=== PATIENT | male | born 1960 | race Caucasian/White ===

== ENCOUNTER 2018-07-08 11:03 | Observation (INO) | payer OTHER ==
[2018-07-08] MEDS ORDERED: NS 1,000 ML IV ONE (11:04)
[2018-07-08 11:47] LABS: PLATELET COUNT 286 10^3/uL (150-400)
[2018-07-08 11:55] LABS: INR 0.91 (0.83-1.16); PROTIME(PATIENT) 11.9 SEC (12.0-15.0)
--- NOTE | 2018-07-08 12:04 | PDANEPAE ---
ANE History of Present Illness Ablation of atrial flutter. ANE Past Medical History - Cardiovascular History Hx Hypertension: No Hx Arrhythmias: Yes Hx Chest Pain: No Hx Coronary Artery / Peripheral Vascular Disease: No Hx CHF / Valvular Disease: No Hx Palpitations: Yes - Pulmonary History Hx COPD: No Hx Asthma/Reactive Airway Disease: No Hx Recent Upper Respiratory Infection: No Hx Oxygen in Use at Home: No Hx Sleep Apnea: No - Neurologic History Hx Cerebrovascular Accident: No Hx Seizures: No Hx Dementia: No - Endocrine History Hx Diabetes: No Hypothyroid: No Hyperthyroid: No Obesity: no - Renal History Hx Renal Disorders: No - Liver History Hx Hepatic Disorders: No - Neurological & Psychiatric Hx Hx Neurological and Psychiatric Disorders: No - GI History GERD: no Hx Gastrointestinal Disorders: No - Chronic Pain History Chronic Pain: No - Surgical History Prior Surgeries: tonsillectomy,lumbar laminectomy, I&D of back, B TKA, R partial shoulder arthroplasty ANE Review of Systems Review of Systems: - Exercise capacity Exercise capacity: >=4 METS ANE Patient History - Allergies Allergies/Adverse Reactions: No Known Allergies Allergy (Verified 07/03/18 10:18) - Home Medications Home Medications: Apixaban [Eliquis] 5 mg PO BID 07/03/18 [Last Taken 07/05/18 07:00] Diltiazem HCl [Cartia Xt] 120 mg PO DAILY 07/03/18 [Last Taken 07/05/18 08:00] Diltiazem [Cardizem Immediate Release] 30 mg PO DAILY PRN 07/03/18 [Last Taken 07/01/18 19:00] Ibuprofen [Motrin (*)] 200 mg PO DAILY PRN 07/03/18 [Last Taken Unknown] - Anes Hx Anes Hx: no prior problems - Smoking Hx Smoking Status: Former smoker - Alcohol Use Alcohol Use: None - Family Anes Hx Family Anes Hx: none ANE Labs/Vital Signs - Labs Result Diagrams: 07/08/18 11:20 07/08/18 11:20 - Vital Signs Height: 175 cm Weight: 81.6 kg ANE Physical Exam - Airway Neck exam: FROM Mallampati Score: Class 1 - Pulmonary Pulmonary: clear to auscultation - Cardiovascular Cardiovascular: regular rate and rhythym - ASA Status ASA Status: II ANE Anesthesia Plan Anesthesia Plan: general endotracheal anesthesia
[2018-07-08] MEDS ORDERED: MIDAZOLAM 2 MG/2 ML VIAL IVP ONE (12:08)
[2018-07-08] MEDS ORDERED: ROCURONIUM 50 MG/5 ML VIAL ONE (12:25)
[2018-07-08] MEDS ORDERED: PROPOFOL 200 MG/20 ML VIAL ONE (12:25)
[2018-07-08] MEDS ORDERED: DEXAMETHASONE 4 MG/ML VIAL ONE (12:25)
--- NOTE | 2018-07-08 12:28 | PDANEPAE ---
ANE Past Medical History - Pulmonary History Hx Oxygen in Use at Home: No Hx Sleep Apnea: No - Endocrine History Hx Diabetes: No ANE Review of Systems Review of Systems: ANE Patient History - Allergies Allergies/Adverse Reactions: No Known Allergies Allergy (Verified 07/03/18 10:18) - Home Medications Home Medications: Apixaban [Eliquis] 5 mg PO BID 07/03/18 [Last Taken 07/05/18 07:00] Diltiazem HCl [Cartia Xt] 120 mg PO DAILY 07/03/18 [Last Taken 07/05/18 08:00] Diltiazem [Cardizem Immediate Release] 30 mg PO DAILY PRN 07/03/18 [Last Taken 07/01/18 19:00] Ibuprofen [Motrin (*)] 200 mg PO DAILY PRN 07/03/18 [Last Taken Unknown] ANE Labs/Vital Signs - Labs Result Diagrams: 07/08/18 11:20 07/08/18 11:20 - Vital Signs Height: 175 cm Weight: 81.6 kg
[2018-07-08] MEDS ORDERED: SEVOFLURANE 250 ML BOTTLE IH ONE (12:30)
[2018-07-08] MEDS ORDERED: LIDOCAINE 1% 300 MG/30 ML SDV ONE (12:40)
[2018-07-08] MEDS ORDERED: HEPARIN 10,000 UNIT/10 ML MDV (1,000 UNIT/ML) ONE ×2 (12:41→13:34)
[2018-07-08] MEDS ORDERED: BUPIVACAINE 0.5% 30 ML SDV ONE (12:41)
--- NOTE | 2018-07-08 12:49 | PDGENHP ---
History & Physical Chief Complaint: at/afl Relevant Physical Exam: s1s2 rrr cta ao3 Cardiorespiratory Assessment: ablation for afib, avnrt, afl and other at in 2013 , symptom free since then until 6 mo ago. Plan to induce AT and map/ablate. If no AT present, will check AFL line and PVI and re ablate as necessary. Known PFO
[2018-07-08] MEDS ORDERED: ISOPROTERENOL HCL/D5W 0.2 MG/50 ML BAG IV ONE (12:52)
[2018-07-08] MEDS ORDERED: PHENYLEPHRINE HCL 100 MCG/ML SYR ONE (13:22)
[2018-07-08] MEDS ORDERED: HEPARIN/DEXTROSE 25,000 UNIT/500 ML BAG ONE (13:34)
[2018-07-08] MEDS ORDERED: ePHEDrine SULFATE 25 MG/5 ML SYR ONE ×2 (14:06→14:24)
[2018-07-08] MEDS ORDERED: ONDANSETRON 4 MG/2 ML VIAL ONE (14:27)
[2018-07-08] MEDS ORDERED: NALOXONE HCL 0.4 MG/ML INJ IVP PRN (14:44)
[2018-07-08] MEDS ORDERED: SUGAMMADEX SODIUM 200 MG/2 ML VIAL IVP ONE (14:45)
[2018-07-08] MEDS ORDERED: fentaNYL 100 MCG/2 ML INJ IVP PRN (14:54)
[2018-07-08] MEDS ORDERED: MIDAZOLAM 2 MG/2 ML VIAL ONE (15:01)
[2018-07-08] MEDS ORDERED: IBUPROFEN 200 MG TAB PO PRN (15:09)
--- NOTE | 2018-07-08 15:09 | POSTANESTH ---
Post Anesthetic Evaluation Cardiovascular Status: Normal, Stable Respiratory Status: Normal, Stable Level of Consciousness/Mental Status: Can Participate in Eval Pain Control: Adequate, Prn Tx Ordered Nausea/Vomiting Control: Adequate, Prn Tx Ordered Complications Possibly Related to Anesthesia: None Noted
--- NOTE | 2018-07-08 15:14 | EPPROC ---
Electrophysiology Procedure Note: ELECTROPHYSIOLOGIC STUDY AND CATHETER MEDIATED ABLATION FOR SUBEUSTACHIAN ISTHMUS DEPENDENT COUNTERCLOCKWISE ATRIAL FLUTTER: INDICATION: Recurrent atrial flutter/tachycardia Prior ablation at our institution in 2012 (RF AFIB, left AT) and 2013 (AVNRT, right AT, AFL) PROCEDURES PERFORMED: 48222-72 EP evaluation with RA/RV/LA pace/record, with arrhythmia induction 87630-94 EP evaluation with RA/RV pace record, insert/reposition catheter, with arrhythmia induction 79914 SVT ablation 58498 3D mapping Fluoroscopy Catheters & Anesthesia: The patient arrived in the Electrophysiology Laboratory in the fasting state. The right clavicular region, right groin, and left groin area were prepped and draped in the usual sterile manner. Anesthesiologist Dr. Perla Zamora administered general anesthesia. Appropriate non-invasive blood pressure, pulse oximetry and end-tidal CO2 monitoring was established. All catheters were placed percutaneously using the modified Seldinger technique , and advanced into position under fluoroscopic guidance. One #7 Kuwaiti deflectable octapolar electrode catheter was advanced to the His-bundle position via the left femoral vein and then into the coronary sinus. One # 7 [place] Halo catheter was inserted through the left femoral vein and was placed at the tricuspid annulus. Heparin was administered to keep ACT > 250 seconds. Programmed stimulation was performed from the right atrium, coronary sinus ( left atrium) and right ventricle. On arrival to the Electrophysiology Laboratory the patient was in sinus rhythm. Atrial flutter, CL 300 ms ms was easily induced by CS pacing or by single PAC. Entrainment mapping from lateral TA, septal TA, proximal CS and distal CS confirmed cavotricuspid isthmus dependent atrial flutter. In preparation for ablation of typical atrial flutter, a high-resolution 3D (3 dimensional) Carto electroanatomical map of the sub-Eustachian isthmus and right atrium was obtained during pacing of the posterolateral coronary sinus. For ablation of typical atrial flutter, one Mobi sheath was placed in the right atrium. A #8 Kuwaiti deflectable quadrapolar electrode catheter (2mm-5mm-2mm spacing) with 3.5 mm STSF irrigated tip electrode and location sensor for the [facility] mapping system was inserted in the long sheath and advanced to the right atrium. Mapping showed a gap in the CT isthmus line with fragmented potentials at the tricuspid annulus. First RF application at this site achieved bidirectional block. Further radiofrequency applications were applied between the tricuspid annulus at 0630 oclock as seen in the TOGOLESE view and the inferior vena cava. Post ablation, a high-resolution electroanatomical map of the sub-Eustachian isthmus was obtained during pacing of the posterolateral coronary sinus. This confirmed conduction block across the sub-Eustachian isthmus. Bidirectional block was also confirmed by pacing. Post ablation, programmed stimulation with isoproterenol on board induced non sustained (3-5 seconds) right atrial tachycardia, CL 460-480 ms. This was not targeted for ablation. The catheters were removed. Sheaths were removed in EP Lab post subQ purse string sutures. The patient was transferred to the cardiovascular holding area in stable condition. Vascular access sheaths were removed in the holding area. There were no apparent complications. CONCLUSIONS: 1. Cavotricuspid isthmus dependent counterclockwise atrial flutter. Conduction along the cavotricuspid isthmus noted near the tricuspid annulus. 2. Successful catheter mediated ablation of cavotricuspid isthmus achieving bi -directional conduction block across cavotricuspid isthmus. 3. Non sustained right atrial tachycardia, not targeted for ablation. 4. No apparent complications. Patient Problems: Problems Problem Status Onset Atrial fibrillation and flutter Active Bacteremia due to Staphylococcus Acute
[2018-07-09 04:34] LABS: PLATELET COUNT 269 10^3/uL (150-400)
[2018-07-09] MEDS ORDERED: PNEUMOCOCCAL 0.5ML VACCINE VIAL (PNEUMOVAX 23) IM ONE (07:35)
[2018-07-09] MEDS ORDERED: ASPIRIN 81 MG CHEWABLE TAB PO SCH (09:00)
--- NOTE | 2018-07-09 10:19 | ASMTLACE ---
LACE Length of stay for Answers: Less than 1 day current admission Acuity / Level of Answers: No Care: Did the patient have an inpatient admission? Comorbidities - select Answers: Other Notes: AFib all that apply # of Emergency department Answers: 0 visits in the last 6 months Score: 1 Date Signed: 07/09/2018 10:18 AM Electronically Signed By:Patria Cooper RN
--- NOTE | 2018-07-09 10:25 | ASDISCHSUM ---
Discharge Information Plan Status:Home with No Needs Medically Cleared to Leave:07/09/2018 Discharge Date:07/09/2018 CM D/C Disposition:Home, Routine, Self-Care ADT D/C Disposition:Home, Routine, Self-Care Projected Discharge Date:07/09/2018 Transportation at D/C: Discharge Delay Reason: Follow-Up Date:07/09/2018 Discharge Slot: Final Diagnosis: Placement Information Patient Contact Information Contact Name:FADIA Relationship: Address:[address] [place] [address] Work Phone: City:[place] Alternate Phone: State/Zip Code:[place] [address] Email: Financial Information Financial Class:BCOP Primary Plan Desc:[employer] Primary Plan Number:[id number] Secondary Plan Desc: Secondary Plan Number: Assessment Information LACE LACE Length of stay for Answers: Less than 1 day current admission Acuity / Level of Answers: No Care: Did the patient have an inpatient admission? Comorbidities - select Answers: Other Notes: AFib all that apply # of Emergency department Answers: 0 visits in the last 6 months Score: 1 Date Signed: 07/09/2018 10:18 AM Electronically Signed By:Patria Cooper RN Intervention Information
[2018-07-09 10:39] VITALS: BP 113/63
--- NOTE | 2018-07-09 13:14 | CPEKG ---
Test Reason : OPEN Blood Pressure : / mmHG Vent. Rate : 076 BPM Atrial Rate : 083 BPM P-R Int : 177 ms QRS Dur : 163 ms QT Int : 439 ms P-R-T Axes : 063 -58 044 degrees QTc Int : 494 ms Sinus rhythm RBBB and LAFB Confirmed by Richard Chan ([id number]) on 07/09/2018 1:14:49 PM Referred By: Richard Chan Confirmed By:Richard Chan
--- NOTE | 2018-07-09 13:17 | CPEKG ---
Test Reason : OPEN Blood Pressure : / mmHG Vent. Rate : 082 BPM Atrial Rate : 079 BPM P-R Int : 177 ms QRS Dur : 160 ms QT Int : 434 ms P-R-T Axes : 048 -32 028 degrees QTc Int : 507 ms Sinus rhythm Right bundle branch block Confirmed by Richard Chan ([id number]) on 07/09/2018 1:17:14 PM Referred By: Richard Chan Confirmed By:Richard Chan
--- NOTE | 2018-07-09 13:19 | CPEKG ---
Test Reason : OPEN Blood Pressure : / mmHG Vent. Rate : 072 BPM Atrial Rate : 072 BPM P-R Int : 188 ms QRS Dur : 173 ms QT Int : 441 ms P-R-T Axes : 053 -11 027 degrees QTc Int : 483 ms Sinus rhythm Right bundle branch block Confirmed by Richard Chan ([id number]) on 07/09/2018 1:19:10 PM Referred By: Richard Chan Confirmed By:Richard Chan
--- NOTE | 2018-07-09 15:32 | ECHO ---
[email or web address] [address] [address] Main: [phone] Echocardiography Examination Transthoracic Name: BANDAR MCCAIN MR#: [id number] Study Date: 07/09/2018 Study Time: 08:59 AM Date of : 1960 Age: 58 year(s) Height: 172.7 cm (68 in.) Weight: 81.19 kg (179 lb.) BSA: 1.95 m2 Gender: Male Examination: Echo Contrast: Image Quality: Adequate Rhythm: Heart Rate: BP: 84 mmHg/59 mmHg Indication: F/U Post EP Study Procedure Staff Referring Physician: Implementation Project Manager: Emilie David [facility] Reading Physician: Destiney Charles MD Requesting Provider: Ordering Physician: Richard Chan MD Indication: F/U Post EP Study Measurements Chambers AV/MV Label Value Normal Value Label Value Normal Value LVOTd 2.1 cm (1.9cm - 2.1cm) AV PGmax 7 mmHg LVOT VTI 18.9 cm (18cm - 22cm) AV PGmean 4 mmHg LVDd, 2D 4.4 cm (4.2cm - 5.9cm) AV Vmax 1.36 m/s LVDs, 2D 3 cm (2.1cm - 4cm) JAVID (VTI) 2.9 cm2 IVSd, 2D 1.1 cm (0.6cm - 1.1cm) MV E Vmax 0.51 m/s LVPWd, 2D 1 cm (0.6cm - 1cm) MV A Vmax 0.6 m/s LVEF, BP 61 % (55% - 70%) MV E/A 0.85 LVEF, 2D 61 % (54% - 74%) MV E/E' lateral 4.9 LVOT PGmean 3 mmHg MV E/E' septal 7.4 (0.5 - 1.7) LVOT Vmean 0.83 m/s MV DT 303 ms RVDd, 2D 4.4 cm (1.9cm - 3.8cm) MV E' septal 0.07 m/s LA Volume, BP 76 ml (18ml - 58ml) MV PHT 0.09 s LADs, 2D 3.6 cm (3cm - 4cm) MVA PHT 2.4 cm2 LAESV index, BP 39 ml/m2 MV E' lateral 0.1 m/s RA Area 22.8 cm2 MV E/E' mean 6 Additional Vessels MV PHT 93 ms Label Value Normal Value MV E' mean 0.08 m/s AoAsc 3 cm TV/PV AoRoot, 2D 3.3 cm (1.4cm - 2.6cm) Label Value Normal Value Patient: BANDAR MCCAIN Study Date: 07/09/2018 Page 1 of 3 08:59 AM IVC 2 cm (1.2cm - 2.3cm) RA Pressure 5 mmHg RVSP 32 mmHg TR Pmax 27 mmHg TR Vmax 2.59 m/s PV PGmax 2 mmHg PV Vmax, Caliper 0.71 m/s (0.6m/s - 0.9m/s) Conclusions 1. The left ventricle is normal in size. Normal LV systolic function with an ejection fraction of 61%. Paradoxical septal motion. 2. The right ventricle is upper limits normal in size. Normal systolic function. 3. Mild biatrial dilation. there is a Chiari network noted in the right atrium. This is a normal variant 4. [id number] mitral regurgitation. 5. Mild tricuspid regurgitation with normal estimated PA systolic pressure. 6. No pericardial effusion 7. Compared with prior echo dated 06/24/2018 overall similar findings. Findings Left Ventricle: Left ventricle is normal in size. Normal systolic LV function with paradoxic septal motion suggestive of bundle branch block, paced cardiac rhythm, or prior cardiac surgery. The ejection fraction, measured by Simpsons method, is 61 %. EF range is estimated at 60 % - 65 %. Left ventricle wall thickness is normal. There are no regional wall motion abnormalities. Left ventricular diastolic function parameters are normal. No LV hypertrophy. Right Ventricle: Upper normal size right ventricle. Right ventricular systolic function is normal. Left Atrium: The left atrium is mildly dilated. Right Atrium: The right atrium is mildly dilated. Mitral Valve: Mitral valve appears structurally normal. Mild to moderate mitral regurgitation. No mitral valve stenosis. Aortic Valve: Aortic leaflets are structurally normal. No significant aortic valve regurgitation. There is no aortic stenosis. Tricuspid Valve: Tricuspid valve leaflets are structurally normal. Mild tricuspid regurgitation. No tricuspid valve stenosis. Right Ventricular systolic pressure is measured at 32 mmHg. Pulmonary artery pressure normal. Pulmonic Valve: Pulmonic leaflets are structurally normal. No significant pulmonic valve regurgitation is evident. Aorta: The aortic root size in 2D measures 3.3 cm. The ascending aorta measures 3.0 cm. Aorta Measurements AoRoot, 2D is 3.3 cm. IVC: The inferior vena cava is normal in size. Pericardium: No pericardial effusion. No pleural effusion present. Exam Details Procedure Ordered: Echo Procedure Status: Routine study Image Quality: Adequate Facility Location: Bedside Patient: BANDAR MCCAIN Study Date: 07/09/2018 Page 2 of 3 08:59 AM (No Signature Object) Patient: BANDAR MCCAIN Study Date: 07/09/2018 Page 3 of 3 08:59 AM [id number]
--- NOTE | 2018-07-09 17:24 | GDS ---
[f rep st] DISCHARGE SUMMARY SUPERVISING TRIAGE REGISTER NURSE: Dr. Richard Chan. ADMISSION DIAGNOSIS: Atrial tachycardia. DISCHARGE DIAGNOSIS: Atrial flutter, status post successful ablation. PROCEDURES PERFORMED DURING HOSPITALIZATION: 1. Electrocardiogram. 2. Electrophysiology study. 3. Atrial flutter ablation. 4. Echocardiogram. HOSPITAL COURSE: Patient presented 07/08/2018, for electrophysiology study and atrial tachycardia ab lation in the setting of recurrent atrial flutter/atrial tachycardia post prior ablation at our insti tution in 2012, and 2013. EP study demonstrated cavotricuspid isthmus dependent counterclockwise atr ial flutter, which was successfully ablated achieving bidirectional conduction block across the CTI. There was also a nonsustained right atrial tachycardia, which was not targeted for ablation. There were no intra-procedure complications and he has done very well in the postprocedure setting. He has been ambulating around his room this morning and is appropriate and stable for discharge home today. PHYSICAL EXAMINATION: GENERAL: Alert and oriented x4 in no apparent distress. VITAL SIGNS: Blood pressure 113/63, heart rate 70, respiratory rate 16, SpO2 93% on room air, temp 36.6 degrees Celsius. RESPIRATORY: Lungs are clear to auscultation without adventitious breath sounds. CARDIAC: Normal S1, S2. No S3, S4, murmur, murmurs. Rhythm is regular. ABDOMEN: Normoactive bowel sounds times a ll 4 quadrants. No masses or tenderness. Soft to palpation. SKIN: Warm, dry without cyanosis, clu bbing, or peripheral edema. EXTREMITIES: Bilateral pursestring sutures removed intact without evide nce of hematoma, redness, oozing, swelling, or warmth. Pulses 2+ bilaterally. No edema. DATABASE: Laboratory studies drawn today include CBC and BMP, which are stable compared to preproced ure. PROCEDURES PERFORMED DURING HOSPITALIZATION: Electrophysiology study and atrial flutter ablation as mentioned above. Postprocedure echocardiogram this morning demonstrates normal systolic function with paradoxical sept al motion, mild right atrial dilation, [id number] MR, mild TR, and normal estimated systolic pr essure. Electrocardiogram this morning demonstrates normal sinus rhythm with a normal DC interval and without new ST-T wave or CPR interval abnormalities. DISCHARGE DISPOSITION: Patient will be discharged home in stable condition. He is under activity re strictions as below. DISCHARGE MEDICATIONS: Please see discharge medication reconciliation sheet for full details. Giovanny chapa note that his diltiazem 120 mg daily has been discontinued, in addition to his Eliquis. He will co ntinue aspirin daily for 4 weeks. DISCHARGE INSTRUCTIONS: Post atrial flutter ablation instructions reviewed with patient and his in detail. 1. We discussed activity restrictions, including lifting no more than 10 pounds and avoidance of pascale dge bathing for 10 days. 2. He will get up and walk around every 45 minutes for 45 days. 3. He we reviewed bleeding precautions, medication compliance, monitoring for signs and symptoms of infection, and monitoring for sustained arrhythmias. 4. At the time of discharge, patient verbalizes understanding regarding all discharge instructions w ithout questions or concerns. 5. He has a followup visit scheduled with our electrophysiology team in 4 weeks and he will contact [facility] with any new or concerning symptoms prior to his upcoming visit. Time spent on discharge greater than 30 minutes. /[id number]/MODL
== END 2018-07-09 11:19 | disposition home or self-care (01) ==
LOC: FCATH 11:03 → F2W 15:08
PROVIDERS: ADMIT Internal Medicine Cardiovascular Disease; ATTEND Internal Medicine Cardiovascular Disease
DX: I48.92 Unspecified atrial flutter (principal); Z96.653 Presence of artificial knee joint, bilateral; Z87.891 Personal history of nicotine dependence
CPT/HCPCS: 90471; 93005; 93306; 93613; 93621; 93623; 93653; G0378; C1731; C1732; C1766; G0009; J1100; J1644; J2250; J2370; J2405; J2704